=== PATIENT | male | born 1990 | race Hispanic/Latino ===

== ENCOUNTER 2019-02-05 12:36 | Emergency (ER) | payer OTHER ==
[2019-02-05] MEDS ORDERED: LIDOCAINE 5% TOPICAL PATCH TP ONE (13:50)
[2019-02-05] MEDS ORDERED: KETOROLAC TROMETHAMINE 60 MG/2 ML VIAL ONE (13:50)
[2019-02-05] MEDS ORDERED: DIAZEPAM 5 MG TABLET ONE (13:51)
[2019-02-05] MEDS ORDERED: ACETAMINOPHEN EXTRA STRENGTH 500 MG TABLET ONE (13:51)
== END 2019-02-05 15:36 | disposition home or self-care (01) ==
LOC: EDH 12:36
DX: M54.16 Radiculopathy, lumbar region (principal); Z72.0 Tobacco use
CPT/HCPCS: 96372; 99284; J1885

== ENCOUNTER 2020-04-26 02:09 | Emergency (ER) | payer OTHER | END 2020-04-26 02:43 | LOC: EDH 02:09 | DX: Z02.83 Encounter for blood-alcohol and blood-drug test (principal) | CPT/HCPCS: 36415 ==